=== PATIENT | female | born 1985 | race American Indian/Alaskan Native ===

== ENCOUNTER 2021-09-08 19:50 | Emergency (ER) | payer OTHER ==
[2021-09-08 20:37] VITALS: BP 142/84
[2021-09-08] MEDS ORDERED: ACETAMINOPHEN 500 MG TAB PO ONE (23:50)
[2021-09-08] MEDS ORDERED: IBUPROFEN 600 MG TAB PO ONE (23:50)
--- NOTE | 2021-09-09 00:04 | Emergency Department Report ---
ED Extremity Problem HPI - General Chief complaint: Extremity Problem,Nontraumatic Stated complaint: BILATERAL LEG PAIN Time Seen by Provider: 09/08/21 23:59 Source: patient Mode of arrival: Ambulatory Limitations: No Limitations - History of Present Illness Initial comments: Patient is a 36-year-old -[place] female with no past medical history presents to the ED with complaint of acute onset persistent intermittent bilateral lower extremity swelling and pain for the last 2 weeks. Patient states that she has been traveling to different cities on an airplane in the last 2 weeks advised to make sure that the pain in her lower extremities is not due to DVT. Patient denies chest pain, shortness of breath, fever, chills, traumatic injury, nausea and vomiting, numbness and tingling or weakness of upper and lower extremities bilaterally and low back pain or hip pain. MD Complaint: extremity pain (Bilateral lower extremity pain and swelling), extremity swelling (Bilateral lower extremity pain and swelling) -: Sudden, week(s) (2) Location: bilateral lower extremity History of Same: No -: Yes arthralgia Radiation: distal Severity scale (0 -10): 8 Quality: aching, sharp Consistency: constant Improves with: nothing Worsens with: weight bearing, walking, exertion, palpation Associated Symptoms: denies other symptoms, myalgias, arthralgias. denies: chest pain, shortness of breath, fever, rash, other - Related Data Previous Rx's Medication Instructions Recorded Last Taken Type Baclofen 20 mg PO Q12H PRN #20 tab 09/09/21 Unknown Rx Naproxen 500 mg PO Q12H PRN #30 tab 09/09/21 Unknown Rx Allergies Allergy/AdvReac Type Severity Reaction Status Date / Time No Known Allergies Allergy Unverified 09/08/21 22:59 ED Review of Systems ROS: Stated complaint: BILATERAL LEG PAIN Other details as noted in HPI Constitutional: denies: chills, fever Eyes: denies: eye pain, eye discharge, vision change ENT: denies: ear pain, throat pain Respiratory: denies: cough, shortness of breath, wheezing Cardiovascular: denies: chest pain, palpitations Endocrine: no symptoms reported Gastrointestinal: denies: abdominal pain, nausea, diarrhea Genitourinary: denies: urgency, dysuria, discharge Musculoskeletal: arthralgia (Bilateral lower extremity pain and swelling), myalgia. denies: back pain, joint swelling Skin: denies: rash, lesions Neurological: denies: headache, weakness, paresthesias Psychiatric: denies: anxiety, depression Hematological/Lymphatic: denies: easy bleeding, easy bruising ED Past Medical Hx - Medications Home Medications: Home Medications Medication Instructions Recorded Confirmed Last Taken Type Baclofen 20 mg PO Q12H PRN #20 tab 09/09/21 Unknown Rx Naproxen 500 mg PO Q12H PRN #30 tab 09/09/21 Unknown Rx ED Physical Exam - General Limitations: No Limitations General appearance: alert, in no apparent distress - Head Head exam: Present: atraumatic, normocephalic, normal inspection - Eye Eye exam: Present: normal appearance, PERRL, EOMI Pupils: Present: normal accommodation - ENT ENT exam: Present: normal exam, normal orophraynx, mucous membranes moist, TM's normal bilaterally, normal external ear exam - Neck Neck exam: Present: normal inspection, full ROM. Absent: tenderness - Respiratory Respiratory exam: Present: normal lung sounds bilaterally. Absent: respiratory distress, wheezes, rales, rhonchi, stridor, chest wall tenderness, accessory muscle use, decreased breath sounds, prolonged expiratory - Cardiovascular Cardiovascular Exam: Present: regular rate, normal rhythm, normal heart sounds. Absent: systolic murmur, diastolic murmur, rubs, gallop - GI/Abdominal GI/Abdominal exam: Present: soft, normal bowel sounds. Absent: tenderness, guarding, rebound, hyperactive bowel sounds, hypoactive bowel sounds, organomegaly, mass - Extremities Exam Extremities exam: Present: normal inspection, full ROM, tenderness (Palpable bilateral lower extremity tenderness), normal capillary refill. Absent: pedal edema, joint swelling, calf tenderness - Back Exam Back exam: Present: normal inspection, full ROM. Absent: tenderness, CVA tenderness (R), CVA tenderness (L), muscle spasm, paraspinal tenderness, vertebral tenderness - Neurological Exam Neurological exam: Present: alert, oriented X3, CN II-XII intact, normal gait, reflexes normal - Psychiatric Psychiatric exam: Present: normal affect, normal mood - Skin Skin exam: Present: warm, dry, intact, normal color. Absent: rash ED Course Vital Signs 09/08/21 09/08/21 20:35 23:51 Temperature 98.8 F Pulse Rate 66 Respiratory 18 14 Rate Blood Pressure 142/84 [Right] O2 Sat by Pulse 100 Oximetry ED Medical Decision Making - Radiology Data Radiology results: report reviewed, image reviewed [facility] [address] [place] [address] Vascular Lab Report Signed Patient: AMADEO ISABEL MR#: [id number] : 1985 Acct:[id number] Age/Sex: 36 / F ADM Date: 09/08/21 Loc: ED Attending Dr: Ordering Physician: TARA MURCIA Date of Service: 09/08/21 Procedure(s): VL venous duplex LE BILAT Accession Number(s): [id number] cc: TARA MURCIA DUPLEX DOPPLER LOWER EXTREMITY VEINS, BILATERAL INDICATION / CLINICAL INFORMATION: Bilateral LE pain, swelling. TECHNIQUE: Duplex doppler imaging was performed through the veins of both lower extremities using venous compression and other maneuvers. COMPARISON: None available. FINDINGS: RIGHT COMMON FEMORAL VEIN: Negative. RIGHT FEMORAL VEIN: Negative. RIGHT POPLITEAL VEIN: Negative. RIGHT CALF VEINS: Negative. LEFT COMMON FEMORAL VEIN: Negative. LEFT FEMORAL VEIN: Negative. LEFT POPLITEAL VEIN: Negative. LEFT CALF VEINS: Negative. ADDITIONAL FINDINGS: None. IMPRESSION: 1. No sonographic evidence for DVT in either lower extremity. Signer Name: Theresa Jenkins II, MD Signed: 09/09/2021 12:02 AM Workstation Name: [id number] Transcribed By: ELI Dictated By: THERESA JENKINS II, MD Electronically Authenticated By: THERESA JENKINS II, MD Signed Date/Time: 09/09/21 0002 DD/ 0001 TD/TT: - Medical Decision Making This is a 36-year-old -[place] female with no past medical history presents to the ED with complaint of acute onset persistent intermittent bilateral lower extremity swelling and pain for the last 2 weeks. Patient states that she has been traveling to different cities on an airplane in the last 2 weeks advised to make sure that the pain in her lower extremities is not due to DVT. In the ED, patient is alert and oriented x3 and is not in any distress. Patient was treated for pain in the ED. Bilateral lower extremity Doppler ultrasound showed no sonographic evidence of DVT. Patient symptoms are likely musculoskeletal muscle spasm or muscle strain. Patient was therefore discharged home on pain medications and muscle relaxants and advised to follow- up with her primary care physician in 5 to 7 days for reevaluation return to the ED immediately if symptoms get worse - Differential Diagnosis Muscle spasm; muscle strain; DVT; osteoarthritis; Critical care attestation.: If time is entered above; I have spent that time in minutes in the direct care of this critically ill patient, excluding procedure time. ED Disposition Clinical Impression: Muscle spasms of both lower extremities, Muscle strain of muscle of posterior left lower leg, Musculoskeletal pain Disposition: HOME / SELF CARE / HOMELESS Is pt being admited?: No Does the pt Need Aspirin: No Condition: Stable Instructions: Muscle Cramps and Spasms, [id number], Muscle Strain, [id number], Musculoskeletal Pain Additional Instructions: The bilateral lower extremity Doppler ultrasound showed no evidence of DVT. Therefore your symptoms are likely musculoskeletal. Take medications as needed for pain and muscle relaxants, drink plenty of fluids, follow-up with your primary care physician in 7 to 10 days for reevaluation. Return to the ED immediately if symptoms get worse. Prescriptions: Baclofen 20 mg PO Q12H PRN #20 tab PRN Reason: Muscle Spasm Naproxen 500 mg PO Q12H PRN #30 tab PRN Reason: Pain , Severe (7-10) Referrals: VIKAS HERNANDEZ MD [Staff Physician] - 3-5 Days Forms: Work/School Release Form(ED) Time of Disposition: 00:04 Print Language: MOLDOVAN
== END 2021-09-09 00:33 | disposition home or self-care (01) ==
LOC: ED 19:50
DX: S86.112A Strain of other muscle(s) and tendon(s) of posterior muscle group at lower leg level, left leg, initial encounter (principal); M62.838 Other muscle spasm; X58.XXXA Exposure to other specified factors, initial encounter; Y93.89 Activity, other specified; Y92.89 Other specified places as the place of occurrence of the external cause; Y99.8 Other external cause status
CPT/HCPCS: 93970; 99283

== ENCOUNTER 2021-10-26 21:33 | Emergency (ER) | payer OTHER ==
[2021-10-27 00:26] VITALS: BP 137/69
== END 2021-10-27 06:57 | disposition left against medical advice (07) ==
LOC: ED 21:33
DX: R51.9 Headache, unspecified (principal); Z53.21 Procedure and treatment not carried out due to patient leaving prior to being seen by health care provider

== ENCOUNTER 2022-03-31 07:49 | Emergency (ER) | payer OTHER ==
--- NOTE | 2022-03-31 08:19 | Emergency Department Report ---
ED Lower Extremity HPI - General Chief Complaint: Extremity Injury, Lower Stated Complaint: KNEE AND FOOT SWOLLEN Time Seen by Provider: 03/31/22 08:18 Source: patient Mode of arrival: Ambulatory Limitations: No Limitations - History of Present Illness Initial Comments: Patient is a 36-year-old female that comes to the ER with right knee pain. She denies any trauma or fall. She has no calf pain. Her ankle is normal with no pain. Her foot is warm. She has no swelling. Patient states that the pain is aching and it radiates down the front of her leg. She has no effusion on exam. She has no systemic symptoms. She has no fever or chills. No tachycardia or hypotension. Pain has been off and on for weeks. MD Complaint: other Place: home Worsens With: movement - Related Data Previous Rx's Medication Instructions Recorded Last Taken Type Baclofen 20 mg PO Q12H PRN #20 tab 09/09/21 Unknown Rx Naproxen 500 mg PO Q12H PRN #30 tab 09/09/21 Unknown Rx Ibuprofen [Motrin] 800 mg PO Q8HR PRN #30 tablet 03/31/22 Unknown Rx Allergies Allergy/AdvReac Type Severity Reaction Status Date / Time No Known Allergies Allergy Verified 03/31/22 08:18 ED Review of Systems ROS: Stated complaint: KNEE AND FOOT SWOLLEN Other details as noted in HPI Comment: All other systems reviewed and negative ED Past Medical Hx - Past Medical History Previous Medical History?: No - Surgical History Past Surgical History?: No - Family History Family history: no significant - Social History Smoking Status: Never Smoker Substance Use Type: None - Medications Home Medications: Home Medications Medication Instructions Recorded Confirmed Last Taken Type Baclofen 20 mg PO Q12H PRN #20 tab 09/09/21 Unknown Rx Naproxen 500 mg PO Q12H PRN #30 tab 09/09/21 Unknown Rx Ibuprofen [Motrin] 800 mg PO Q8HR PRN #30 tablet 03/31/22 Unknown Rx ED Physical Exam - General Limitations: No Limitations General appearance: alert, in no apparent distress - Head Head exam: Present: atraumatic, normocephalic - Eye Eye exam: Present: normal appearance - ENT ENT exam: Present: mucous membranes moist - Neck Neck exam: Present: normal inspection - Respiratory Respiratory exam: Present: normal lung sounds bilaterally. Absent: respiratory distress - Cardiovascular Cardiovascular Exam: Present: regular rate, normal rhythm. Absent: systolic murmur, diastolic murmur, rubs, gallop - GI/Abdominal GI/Abdominal exam: Present: soft, normal bowel sounds - Extremities Exam Extremities exam: Present: normal inspection - Back Exam Back exam: Present: normal inspection - Neurological Exam Neurological exam: Present: alert, oriented X3 - Psychiatric Psychiatric exam: Present: normal affect, normal mood - Skin Skin exam: Present: warm, dry, intact, normal color. Absent: rash ED Course Vital Signs 03/31/22 03/31/22 08:18 08:20 Temperature 98.7 F Pulse Rate 61 Respiratory 18 Rate Blood Pressure 119/57 O2 Sat by Pulse 98 Oximetry ED Lower Extremity MDM - Medical Decision Making Vital Signs 03/31/22 03/31/22 08:18 08:20 Temperature 98.7 F Pulse Rate 61 Respiratory 18 Rate Blood Pressure 119/57 O2 Sat by Pulse 98 Oximetry Patient has no known trauma. Exam is normal. No indication for imaging. Medicated with Motrin for pain. Patient being discharged home with discharge plan of care including diet, activity, medications and follow-up. She verbalizes understanding of plan of care. - Differential Diagnosis Knee pain Critical care attestation.: If time is entered above; I have spent that time in minutes in the direct care of this critically ill patient, excluding procedure time. ED Disposition Clinical Impression: Leg pain Disposition: 01 HOME / SELF CARE / HOMELESS Is pt being admited?: No Does the pt Need Aspirin: No Condition: Stable Additional Instructions: rest and ice to painful areas med as ordered today follow up with pcp or ortho adele referral below Prescriptions: Ibuprofen [Motrin] 800 mg PO Q8HR PRN #30 tablet PRN Reason: Pain, Moderate (4-6) Referrals: PRIMARY MD SARAHI [Primary Care Provider] - 3-5 Days VIKAS HERNANDEZ MD [Staff Physician] - 3-5 Days BONIFACIO GUTIÉRREZ MD [Staff Physician] - 3-5 Days Forms: Work/School Release Form(ED) Time of Disposition: 10:04
[2022-03-31 08:20] VITALS: BP 119/57
[2022-03-31] MEDS ORDERED: IBUPROFEN 800 MG TAB PO ONE (09:09)
== END 2022-03-31 10:18 | disposition home or self-care (01) ==
LOC: ED 07:49
DX: M25.561 Pain in right knee (principal); Z79.899 Other long term (current) drug therapy
CPT/HCPCS: 99282